=== PATIENT | female | born 1965 | race Hispanic/Latino ===

== ENCOUNTER 2021-07-02 19:43 | Emergency (ER) | payer OTHER ==
[~2021-07-02] VITALS: Ht 152.4 cm; Wt 56.7 kg
[2021-07-02 19:47] VITALS: BP 152/76
[2021-07-02] MEDS ORDERED: CYCLOBENZAPRINE HCL 10 MG TABLET PO ONE (20:00)
[2021-07-02] MEDS ORDERED: HYDROCODONE/ACETAMINOPHEN 5/325 MG TAB PO ONE (20:00)
[2021-07-02] MEDS ORDERED: HYDROCODONE/ACETAMINOPHEN 5/325 MG TAB ONE (20:03)
[2021-07-02] MEDS ORDERED: CYCLOBENZAPRINE HCL 10 MG TABLET ONE (20:03)
[2021-07-02] MEDS ORDERED: CYCL10TA16 PO (20:51)
[2021-07-02] MEDS ORDERED: MELO7.5T12 PO (20:51)
== END 2021-07-02 21:11 | disposition home or self-care (01) ==
LOC: EDH 19:43
DX: S16.1XXA Strain of muscle, fascia and tendon at neck level, initial encounter (principal); S29.012A Strain of muscle and tendon of back wall of thorax, initial encounter; S93.402A Sprain of unspecified ligament of left ankle, initial encounter; S93.401A Sprain of unspecified ligament of right ankle, initial encounter; Z79.1 Long term (current) use of non-steroidal anti-inflammatories (NSAID); Z86.12 Personal history of poliomyelitis; V49.3XXA Car occupant (driver) (passenger) injured in unspecified nontraffic accident, initial encounter; Y93.89 Activity, other specified; Y92.89 Other specified places as the place of occurrence of the external cause; Y99.8 Other external cause status
CPT/HCPCS: 72125; 72128; 73600